=== PATIENT | male | born 1960 | race American Indian/Alaskan Native ===

== ENCOUNTER 2016-06-04 04:25 | Observation (INO) | payer OTHER ==
[2016-06-04 04:26] VITALS: BMI 25.8
[2016-06-04] MEDS ORDERED: Albuterol-Ipratrop 3 mg / 0.5 (3 ml) UD INH STA ×2 (05:11→05:12)
--- NOTE | 2016-06-04 05:27 | ED PDOC ---
HPI: General Adult Chief Complaint (Provider): Flu-like symptoms History Per: Patient History/Exam Limitations: no limitations Onset/Duration Of Symptoms: Days (4) Current Symptoms Are (Timing): Still Present Severity: Moderate <Booker Butts - Last Filed: 06/04/16 05:23> <Lisa Knox - Last Filed: 06/04/16 14:09> Time Seen by Provider: 06/04/16 04:58 Chief Complaint (Nursing): GI Problem Additional Complaint(s): Saturnino Dukes is a 55 y/o -[place] male presenting to the ER on with exacerbation of flu like symptoms such as fever, chills, and myalgia x4 days. Patient reports developing non-bloody/non-bilious vomiting x2 days. States he cannot tolerate some bglf-edx-nxlglad medications such as Theraflu. Patient additionally reports episodes of productive coughing associated with brown sputum, as well as mild chest tightness. (Booker Butts) Past Medical History Reviewed: Historical Data - Medical History PMH: HTN Denies: Chronic Kidney Disease - Surgical History Surgical History: No Surg Hx - Family History Family History: States: Unknown Family Hx - Social History Alcohol: Occasional <Booker Butts - Last Filed: 06/04/16 05:23> <Lisa Knox - Last Filed: 06/04/16 14:09> Vital Signs: Last Vital Signs Temp 99 F 06/04/16 10:41 Pulse 90 06/04/16 10:41 Resp 18 06/04/16 10:41 BP 140/99 H 06/04/16 10:41 Pulse Ox 98 06/04/16 10:41 - Home Medications Home Medications: Ambulatory Orders Medication Instructions Recorded Naproxen 500 mg PO Q12 #20 tab 12/04/13 - Allergies Allergies/Adverse Reactions: Allergies Allergy/AdvReac Type Severity Reaction Status Date / Time No Known Allergies Allergy Verified 12/04/13 07:34 Review of Systems ROS Statement: Except As Marked, All Systems Reviewed And Found Negative Constitutional: Positive for: Fever, Chills, Other (myalgia ) Cardiovascular: Negative for: Other (chest tightness) Respiratory: Positive for: Cough, Sputum (brown) Gastrointestinal: Positive for: Nausea, Vomiting <Sikand,Booker Arce - Last Filed: 06/04/16 05:23> Physical Exam - Reviewed Nursing Documentation Reviewed: Yes Vital Signs Reviewed: Yes - Physical Exam Appears: Positive for: Non-toxic, No Acute Distress Head Exam: Positive for: ATRAUMATIC, NORMOCEPHALIC Skin: Positive for: Normal Color Eye Exam: Positive for: Normal appearance ENT: Positive for: Normal ENT Inspection. Negative for: Pharyngeal Erythema, Tonsillar Exudate, Tonsillar Swelling Neck: Positive for: Normal, Painless ROM, Supple Cardiovascular/Chest: Positive for: Regular Rate, Rhythm. Negative for: Murmur Respiratory: Positive for: Rhonchi (bilat). Negative for: Crackles (left base ) Gastrointestinal/Abdominal: Positive for: Normal Exam, Soft. Negative for: Tenderness Extremity: Positive for: Normal ROM. Negative for: Deformity Neurologic/Psych: Positive for: Alert, Oriented. Negative for: Motor/Sensory Deficits, Gait (steady) <Booker Butts - Last Filed: 06/04/16 05:23> - ECG O2 Sat by Pulse Oximetry: 99 <Booker Butts - Last Filed: 06/04/16 05:23> - Laboratory Results Result Diagrams: 06/04/16 05:32 06/04/16 05:32 <Lisa Knox - Last Filed: 06/04/16 14:09> Medical Decision Making <Booker Butts - Last Filed: 06/04/16 05:23> <Lisa Knox - Last Filed: 06/04/16 14:09> Medical Decision Makin:58 Initial Impression- 55 y/o male with flu like symptoms and productive cough Initial Plan- * EKG * CMP * Lactic Acid * CBC w/ differential * Albuterol 3 ml INH * Toradol 10 mg IVP * Zofran 4 mg IV * Blood Cx * Peak Flow * Influenza AB * Re-eval Documented by Isha White, acting as a scribe for Booker Butts MD. All medical record entries made by the Scribe were at my direction and personally dictated by me. I have reviewed the chart and agree that the record accurately reflects my personal performance of the history, physical exam, medical decision making, and the department course for this patient. I have also personally directed, reviewed, and agree with the discharge instructions and disposition. (Booker Butts) patient seen by hospitalist and observed. He was hydrated aggresiively. He is no longer nausea. He was seen by resident form [facility] who has made arrangements for him to be seen there for followup. (Lisa Knox) Disposition <Booker Butts - Last Filed: 06/04/16 05:23> - Patient ED Disposition Is Patient to be Admitted: No Doctor Will See Patient In The: Office Counseled Patient/Family Regarding: Diagnosis, Need For Followup, Rx Given - Disposition Disposition: Routine/Home Disposition Time: 14:08 - POA Present On Arrival: None <Lisa Knox - Last Filed: 06/04/16 14:09> - Clinical Impression Clinical Impression: Pneumonia - Disposition Condition: FAIR
[2016-06-04] MEDS ORDERED: Albuterol-Ipratrop 3 mg / 0.5 (3 ml) UD ONE (05:28)
[2016-06-04 05:36] LABS: BASO % 0.1 % (0.0-2.0); HEMATOCRIT 42.2 % (35.0-51.0); LYMPH # 0.3 K/uL (1.0-4.3); LYMPH % 3.4 % (20.0-40.0); MEAN CELL VOLUME 86.9 fl (80.0-94.0); MEAN CORPUSCULAR HEMOGLOBIN 28.8 pg (27.0-31.0); MEAN CORPUSCULAR HGB CONC 33.2 g/dL (33.0-37.0); MONO # 0.2 K/uL (0.0-0.8); MONO % 1.8 % (0.0-10.0); NEUT # 8.2 K/uL (1.8-7.0); NEUT % 94.7 % (50.0-75.0); NRBC % 0.3 % (0.0-0.0); PLATELET COUNT 138 K/uL (130-400); RED CELL DISTRIBUTION WIDTH 13.1 % (11.5-14.5); WHITE BLOOD COUNT 8.6 K/uL (4.8-10.8)
[2016-06-04 05:50] LABS: ALKALINE PHOSPHATASE 65 U/L (38-126); ALT/SGPT 32 U/L (21-72); AST/SGOT 38 U/L (17-59); BILIRUBIN,TOTAL 0.7 mg/dl (0.2-1.3); BLOOD UREA NITROGEN 16 mg/dl (9-20); CALCIUM 8.9 mg/dL (8.4-10.2); CARBON DIOXIDE 26 mmol/L (22-30); CHLORIDE 95 mmol/L (98-107); GFR AFRICAN-AMERICAN > 60; GLUCOSE,RANDOM 128 mg/dL (75-110); POTASSIUM 3.5 MMOL/L (3.6-5.0); SODIUM 139 mmol/l (132-148); TOTAL PROTEIN 7.6 G/DL (6.3-8.2)
[2016-06-04 06:10] LABS: NEUTROPHIL 91 % (42-75); TOTAL CELLS COUNTED 100
[2016-06-04 06:12] LABS: GIANT PLATELETS PRESENT
--- NOTE | 2016-06-04 07:13 | ED PDOC ---
- Laboratory Results Result Diagrams: 06/04/16 05:32 06/04/16 05:32 - ECG O2 Sat by Pulse Oximetry: 99 (RA) Pulse Ox Interpretation: Normal - Radiology X-Ray: Interpreted by Me, Viewed By Me Medical Decision Making Medical Decision Makin signed over to me by Ted Butts MD pending XR, labs, reassessment. 0809: labs reviewed. CXR significant for pneumonia as read by me. On reassessment patient appears weak with dry mucous membranes. In addition, he has not been able to eat or drink well. He complains of generalized weakness. He does not have a doctor to followup with on outpatient. ABG ordered. Rocephin & Zithromax IV ordered. Will discuss with hospitalist for admission. Disposition Doctor Will See Patient In The: Hospital - Clinical Impression Clinical Impression: Pneumonia - POA Present On Arrival: None - Disposition Referrals: FAMILY PROVIDER,NO [Primary Care Provider] - Disposition: Transfer of Care Disposition Time: 08:20 Condition: FAIR Additional Comments - Additional Comments Additional Comments: Scribe Attestation Documented by Anurag Whitaker, acting as a scribe for Lisa Knox MD. Provider Scribe Attestation All medical record entries made by the Scribe were at my direction and personally dictated by me. I have reviewed the chart and agree that the record accurately reflects my personal performance of the history, physical exam, medical decision making, and the department course for this patient. I have also personally directed, reviewed, and agree with the discharge instructions and disposition.
[2016-06-04] MEDS ORDERED: Azithromycin 500 MG in Sodium Chloride 0.9% 250 ML IVPB STA (08:14)
[2016-06-04] MEDS ORDERED: cefTRIAXone (Rocephin) 1 gm Inj ONE (08:14)
--- NOTE | 2016-06-04 08:14 | CARD ---
APPROVED REPORT EKG Measurement Heart [id number] <Conclusion> Normal sinus rhythm Minimal voltage criteria for LVH, may be normal variant Borderline ECG
--- NOTE | 2016-06-04 08:14 | CARD ---
APPROVED REPORT EKG Measurement Heart [id number] <Conclusion> Normal sinus rhythm Minimal voltage criteria for LVH, may be normal variant Borderline ECG
[2016-06-04] MEDS ORDERED: Sodium Chloride 0.9% 1,000 ML IV STA ×2 (08:15→10:43)
[2016-06-04 08:31] LABS: ABG ALLEN TEST YES; ARTERIAL BLOOD GAS HCO3 29.6 mmol/L (21-28); ARTERIAL BLOOD GAS PO2 69 mm/Hg (80-100)
[2016-06-04 10:41] VITALS: RESP 18; O2SAT 98
--- NOTE | 2016-06-04 11:01 | RAD ---
HISTORY: cough COMPARISON: No prior. TECHNIQUE: Chest PA and lateral FINDINGS: LUNGS: Right upper lobe pneumonia. PLEURA: No significant pleural effusion identified. No pneumothorax apparent. CARDIOVASCULAR: Normal. OSSEOUS STRUCTURES: No significant abnormalities. VISUALIZED UPPER ABDOMEN: Normal. OTHER FINDINGS: None. IMPRESSION: Right upper lobe pneumonia.
--- NOTE | 2016-06-04 11:06 | CP.PCM.PN ---
Subjective - Date & Time of Evaluation Date of Evaluation: 06/04/16 Time of Evaluation: 11:06 Objective - Vital Signs/Intake and Output Vital Signs (last 24 hours): Temp Pulse Resp BP Pulse Ox 99 F 90 18 140/99 H 98 06/04/16 10:41 06/04/16 10:41 06/04/16 10:41 06/04/16 10:41 06/04/16 10:41 - Medications Medications: Current Medications Sodium Chloride (Sodium Chloride 0.9%) 1,000 mls @ 1,000 mls/hr IV .Q1H STA Stop: 06/04/16 11:42 Last Admin: 06/04/16 10:59 Dose: 1,000 mls/hr
--- NOTE | 2016-06-04 11:41 | CP.PCM.CON ---
History of Present Illness - History of Present Illness History of Present Illness: Chief complaint don't feel well [facility] 55-year-old -Citizen Of [place] male with no past medical history presenting with a 4 day history of subjective fever, chills, gradually on setting moderate generalized myalgia which has been waxing and waning. He also complained of nonbloody nonbilious emesis and nausea for 2 days. Patient was seen in the emergency room is afebrile, with no leukocytosis. He is flu negative. He received 1 L of normal saline, and was started on azithromycin and ceftriaxone. He was also given bronchodilators in addition to Zofran for nausea. Chest x-ray did show a right upper lobe pneumonia. Patient is alert awake, laying in bed, in no distress, not confused, BUN and creatinine are within normal limits, respiratory rate is about 16, blood pressures 124/94, and patient is 55 years of age. Given these parameters patient's CURB-65 pneumonia severity score is 0. At present patient does continue to complain of some nausea, will give 1 more liter of normal saline for likely dehydration. Patient may be discharged home on oral antibiotics Azithromycin and Augmentin. Review systems per HPI all other systems reviewed and negative by me Past medical history denies Past surgical history denies Family history denies Social history denies tobacco, alcohol, IV drug use Medications patient does not take any home medications Allergies patient has no known drug allergies Vital signs as documented. Temp Pulse Resp BP Pulse Ox 99 F 90 18 140/99 H 98 06/04/16 10:41 06/04/16 10:41 06/04/16 10:41 06/04/16 10:41 06/04/16 10:41 Gen: WDWN, cooperative, alert HEENT: NCAT, PERRL, EOMI, no erythema, exudates, gross hearing intact, no lesions. mildly dry mucous membranes Neck: Soft, supple, no lymphadenopathy, no JVD Heart: +S1S2, RRR, No MRG Lung: Mild rales right upper lobe, otherwise clear to auscultation all other lung melendez Abd: soft, NT, ND, BSx4, no HSM, no masses Ext: warm, well perfused, pedal pulses intact Neuro: AAOx3, Strength equal bilaterally UE/LE Skin: Warm, Dry, no rash Psych: Normal mood, affect with appropriate range Laboratory results 06/04/16 05:32 06/04/16 05:32 Imaging results Chest x-ray right upper lobe pneumonia Assessment and plan 55-year-old -Citizen Of [place] male with no past medical history presenting with a 4 day history of subjective fever, chills, gradually on setting moderate generalized myalgia which has been waxing and waning. He also complained of nonbloody nonbilious emesis and nausea for 2 days. Patient was seen in the emergency room is afebrile, with no leukocytosis. He is flu negative. He received 1 L of normal saline, and was started on azithromycin and ceftriaxone. He was also given bronchodilators in addition to Zofran for nausea. Chest x-ray did show a right upper lobe pneumonia. Patient is alert awake, laying in bed, in no distress, not confused, BUN and creatinine are within normal limits, respiratory rate is about 16, blood pressures 124/94, and patient is 55 years of age. Given these parameters patient's CURB-65 pneumonia severity score is 0. At present patient does continue to complain of some nausea, will give 1 more liter of normal saline for clinical dehydration, normal BUN/Cr. Patient may be discharged home on oral antibiotics Azithromycin and AugmentiN, in addition to bronchodilator. Patient was also seen by resident from [facility] for subsequent follow-up as an outpatient. Past Patient History - Past Social History Alcohol: Occasional - CARDIAC Hx Hypertension: Yes - PULMONARY Hx Respiratory Disorders: No - NEUROLOGICAL Hx Neurological Disorder: No - HEENT Hx HEENT Problems: No - RENAL Hx Chronic Kidney Disease: No - ENDOCRINE/METABOLIC Hx Endocrine Disorders: No - HEMATOLOGICAL/ONCOLOGICAL Hx Blood Disorders: No - INTEGUMENTARY Hx Dermatological Problems: No - MUSCULOSKELETAL/RHEUMATOLOGICAL Hx Musculoskeletal Disorders: No - GASTROINTESTINAL Hx Gastrointestinal Disorders: No - GENITOURINARY/GYNECOLOGICAL Hx Genitourinary Disorders: No - PSYCHIATRIC Hx Psychophysiologic Disorder: No Hx Substance Use: No - SURGICAL HISTORY Hx Surgeries: No - ANESTHESIA Hx Anesthesia: No Meds Allergies/Adverse Reactions: Allergies Allergy/AdvReac Type Severity Reaction Status Date / Time No Known Allergies Allergy Verified 12/04/13 07:34 - Medications Medications: Current Medications Sodium Chloride (Sodium Chloride 0.9%) 1,000 mls @ 1,000 mls/hr IV .Q1H STA Stop: 06/04/16 11:42 Last Admin: 06/04/16 10:59 Dose: 1,000 mls/hr Results - Vital Signs Recent Vital Signs: Last Vital Signs Temp 99 F 06/04/16 10:41 Pulse 90 06/04/16 10:41 Resp 18 06/04/16 10:41 BP 140/99 H 06/04/16 10:41 Pulse Ox 98 06/04/16 10:41 - Labs Result Diagrams: 06/04/16 05:32 06/04/16 05:32 Labs: Laboratory Results - last 24 hr 06/04/16 08:26 pCO2 38 pO2 69 L HCO3 29.6 H ABG pH 7.50 H ABG Total CO2 30.8 H ABG O2 Saturation 98.7 H ABG Base Excess 6.1 H Joaquin Test Yes ABG Potassium 3.1 L A-a O2 Difference 33.0 Sodium 132.0 Chloride 101.0 Glucose 138 H Lactate 1.8 FiO2 21.0 Arterial Blood Potassium 3.1 L
[2016-06-04] MEDS ORDERED: Potassium CL 10mEq/100ml 100 ML IVPB SCH (12:00)
[2016-06-04 14:38] VITALS: BP 130/88; PULSE 84; TEMP 99.1
== END 2016-06-04 14:46 | disposition home or self-care (01) ==
LOC: H.ER 04:25 → H.ERHOLD 08:21
PROVIDERS: ADMIT Student in an Organized Health Care Education/Training Program; ATTEND Student in an Organized Health Care Education/Training Program
DX: J18.9 Pneumonia, unspecified organism (principal); E86.0 Dehydration; I10 Essential (primary) hypertension